=== PATIENT | female | born 1945 | race Caucasian/White ===

== ENCOUNTER 2022-05-11 17:30 | Inpatient (IN) | payer MEDICARE, MEDICAID ==
[~2022-05-11] VITALS: Ht 167.6 cm; Wt 81.6 kg
[2022-05-11 17:51] LABS: HEMOGLOBIN 11.5 gm/dl (12.3-15.3); RED BLOOD COUNT 6.18 M/UL (4.00-5.10); WHITE BLOOD COUNT 18.3 K/UL (4.5-11.0)
[2022-05-11 18:04] LABS: BORDETELLA PARAPERTUSSIS Not Detected (Not Detectd); BORDETELLA PERTUSSIS Not Detected (Not Detectd); CHLAMYDIA PNEUMONIAE Not Detected (Not Detectd); CORONAVIRUS HKU1 Not Detected (Not Detectd); CORONAVIRUS NL63 Not Detected (Not Detectd); CORONAVIRUS OC43 Not Detected (Not Detectd); CORONOAVIRUS 229E Not Detected (Not Detectd); HUMAN METAPNEUMOVIRUS Not Detected (Not Detectd); HUMAN RHINOVIRUS/ENTEROVIRUS Not Detected (Not Detectd); INFLUENZA A Not Detected (Not Detectd); INFLUENZA B Not Detected (Not Detectd); MYCOPLASMA PNEUMONIAE Not Detected (Not Detectd); PARAINFLUENZA VIRUS 1 Not Detected (Not Detectd); PARAINFLUENZA VIRUS 2 Not Detected (Not Detectd); PARAINFLUENZA VIRUS 3 Not Detected (Not Detectd); PARAINFLUENZA VIRUS 4 Not Detected (Not Detectd); RESPIRATORY SYNCYTIAL VIRUS Not Detected (Not Detectd)
[2022-05-11 18:19] LABS: BUN/CREATININE RATIO 22 (0-10)
[2022-05-11 19:48] LABS: SARS-CoV-2 NOT DETECTED (Not Detectd)
[2022-05-12 03:26] LABS: HEMOGLOBIN 11.2 gm/dl (12.3-15.3); RED BLOOD COUNT 5.89 M/UL (4.00-5.10)
[2022-05-12] MEDS ORDERED: AMLODIPINE BESYL5 MG PO ×2 (10:57→13:14)
[2022-05-12] MEDS ORDERED: LEVOTHYROXINE100 MCG PO ×2 (10:57→13:13)
[2022-05-12] MEDS ORDERED: ELIQUIS 2.5 MG2.5 MG PO (10:58)
[2022-05-12] MEDS ORDERED: METFORMIN HCL500 MG PO ×2 (10:58→13:14)
[2022-05-12] MEDS ORDERED: PROAIR HFA8.5 GM INH ×2 (11:00→13:13)
[2022-05-12] MEDS ORDERED: ASPIRIN EC81 MG PO (11:01)
[2022-05-12] MEDS ORDERED: VITAMIN D21250 MCG PO (13:13)
[2022-05-12] MEDS ORDERED: ASPIRIN81 MG PO (13:14)
[2022-05-12] MEDS ORDERED: RESTORIL15 MG PO (13:14)
[2022-05-12] MEDS ORDERED: POTASSIUM CHLO10 ME1 PO (13:15)
[2022-05-12] MEDS ORDERED: CYCLOBENZAPRINE5 MG PO (13:15)
[2022-05-12] MEDS ORDERED: ELIQUIS2.5 MG PO (13:16)
[2022-05-12] MEDS ORDERED: GABAPENTIN300 MG PO (13:16)
[2022-05-12] MEDS ORDERED: PREDNISONE5 MG PO (13:17)
[2022-05-12] MEDS ORDERED: BUMETANIDE0.5 MG PO (13:17)
[2022-05-12] MEDS ORDERED: MS CONTIN15 MG PO (13:18)
[2022-05-12] MEDS ORDERED: HYDROCODON-ACE1 EAC4 PO (13:19)
[2022-05-13 04:57] LABS: HEMOGLOBIN 11.1 gm/dl (12.3-15.3); RED BLOOD COUNT 5.83 M/UL (4.00-5.10); WHITE BLOOD COUNT 8.8 K/UL (4.5-11.0)
== END 2022-05-13 20:04 | disposition expired | DRG 871 ==
LOC: ER1 17:30 → CCU 20:09 → CDU 20:09 → CCU 05-12 00:20
PROVIDERS: Preventive Medicine Occupational Medicine; ADMIT Internal Medicine
PROC: 3E03329 Introduction of Other Anti-infective into Peripheral Vein, Percutaneous Approach (ICD-10-PCS; principal; 2022-05-11)
PROC: 5A1945Z Respiratory Ventilation, 24-96 Consecutive Hours (ICD-10-PCS; 2022-05-11)
PROC: 0BH17EZ Insertion of Endotracheal Airway into Trachea, Via Natural or Artificial Opening (ICD-10-PCS; 2022-05-11)
PROC: 0DH63UZ Insertion of Feeding Device into Stomach, Percutaneous Approach (ICD-10-PCS; 2022-05-12)
DX: A41.9 Sepsis, unspecified organism (principal); G93.41 Metabolic encephalopathy; J18.9 Pneumonia, unspecified organism; J96.21 Acute and chronic respiratory failure with hypoxia; J96.22 Acute and chronic respiratory failure with hypercapnia; N17.0 Acute kidney failure with tubular necrosis; J44.0 Chronic obstructive pulmonary disease with (acute) lower respiratory infection; J44.1 Chronic obstructive pulmonary disease with (acute) exacerbation; C78.7 Secondary malignant neoplasm of liver and intrahepatic bile duct; E87.2 Acidosis; E87.1 Hypo-osmolality and hyponatremia; I13.0 Hypertensive heart and chronic kidney disease with heart failure and stage 1 through stage 4 chronic kidney disease, or unspecified chronic kidney disease; Z66 Do not resuscitate; D53.9 Nutritional anemia, unspecified; G89.29 Other chronic pain; I50.9 Heart failure, unspecified; C50.919 Malignant neoplasm of unspecified site of unspecified female breast; R74.01 Elevation of levels of liver transaminase levels; R65.20 Severe sepsis without septic shock; N18.9 Chronic kidney disease, unspecified; E87.5 Hyperkalemia; Z51.5 Encounter for palliative care; Z99.3 Dependence on wheelchair; Z91.013 Allergy to seafood; Z88.5 Allergy status to narcotic agent; Z90.12 Acquired absence of left breast and nipple
CPT/HCPCS: 31500; 36415; 36600; 70450; 71045; 74018; 80053; 80202; 80307; 81001; 82009; 82140; 82550; 82553; 82803; 82962; 83605; 83690; 83735; 83880; 84100; 84484; 85025; 85610; 85652; 85730; 86140; 87040; 87086; 87633; 93005; 94002; 94003; 94640; 94664; 94760; 96361; 96365; 96366; 96375; 99285; C9113; G0480; J0330; J0692; J0696; J1644; J2060; J2185; J2704; J2920; J2930; J3370; J7030; J7070